=== PATIENT | male | born 1940 | race Hispanic/Latino ===

== ENCOUNTER 2023-01-01 09:59 | Day surgery (SDC) | payer MEDICARE ==
[2023-01-01] MEDS ORDERED: Lidocaine 1% PF 5 ML VIAL ONE ×2 (10:10→11:21)
[2023-01-01] MEDS ORDERED: Sodium Bicarbonate 2.5 MEQ/5 ML VIAL ONE (10:11)
[2023-01-01] MEDS ORDERED: Midazolam HCl 5 mg/5 ml Vial ONE (10:46)
[2023-01-01] MEDS ORDERED: Fentanyl 100 MCG/2 ML VIAL ONE (10:46)
[2023-01-01 11:07] VITALS: BP 182/83; TEMP 96.7
[2023-01-01] MEDS ORDERED: hydrALAZINE 20 MG/ML VIAL ONE (11:50)
== END 2023-01-01 13:06 | disposition home or self-care (01) ==
LOC: CSHRAD 09:59 → EDSTATUS 11:00 → CSHRAD 13:06
PROVIDERS: ATTEND Family Medicine
PROC: B02BYZZ Computerized Tomography (CT Scan) of Spinal Cord using Other Contrast (ICD-10-PCS; principal; 2023-01-01)
DX: M96.1 Postlaminectomy syndrome, not elsewhere classified (principal); M51.16 Intervertebral disc disorders with radiculopathy, lumbar region; M48.061 Spinal stenosis, lumbar region without neurogenic claudication
CPT/HCPCS: 62284; 72120; 72132; 77002; J0360; J2250; J3010